=== PATIENT | male | born 2000 | race African-American/Black ===

== ENCOUNTER 2022-08-17 19:30 | Emergency (ER) | payer OTHER, SELFPAY ==
[2022-08-17] MEDS ORDERED: Ibuprofen 200 MG TAB ONE (20:10)
== END 2022-08-17 20:59 | disposition home or self-care (01) ==
LOC: CSHERS 19:30
DX: S09.90XA Unspecified injury of head, initial encounter (principal); M54.2 Cervicalgia; V89.2XXA Person injured in unspecified motor-vehicle accident, traffic, initial encounter
CPT/HCPCS: 70450; 72125